=== PATIENT | male | born 1990 | race Caucasian/White ===

== ENCOUNTER 2022-01-18 08:31 | Emergency (ER) | payer OTHER ==
[~2022-01-18] VITALS: Ht 175.3 cm; Wt 104.0 kg
[2022-01-18 08:56] VITALS: BP 137/86
[2022-01-18] MEDS ORDERED: KETOROLAC 15 MG/ML VIAL. IVP ONE (09:00)
[2022-01-18] MEDS ORDERED: ONDANSETRON PF 4 MG/2 ML VIAL. IVP ONE (09:00)
[2022-01-18] MEDS ORDERED: IV NORMAL SALINE 1,000ML 1,000 ML IV ONE (09:00)
--- NOTE | 2022-01-18 09:19 | PHYS DOC ---
Past History Past Surgical History: No Surgical History Adult General Chief Complaint Chief Complaint: ABDOMINAL PAIN HPI HPI Patient is a 31-year-old male presenting to the emergency department for evaluation of left flank and abdomen pain that started last night and has persisted and is caused him multiple episodes of nonbloody nonbilious emesis. He denies fevers chills diarrhea constipation dysuria or hematuria. He says the pain is quite intense and does radiate towards his testicle. He denies ever having prior kidney stones in the past. He appears uncomfortable but is nontoxic with normal vital signs. Review of Systems Review of Systems Constitutional: Denies fever or chills [] Eyes: Denies change in visual acuity, redness, or eye pain [] HENT: Denies nasal congestion or sore throat [] Respiratory: Denies cough or shortness of breath [] Cardiovascular: No additional information not addressed in HPI [] GI: + abdominal pain, nausea, vomiting. No bloody stools or diarrhea [] : Denies dysuria or hematuria [] Musculoskeletal: + back pain. No joint pain [] Integument: Denies rash or skin lesions [] Neurologic: Denies headache, focal weakness or sensory changes [] All other systems were reviewed and found to be within normal limits, except as documented in this note. Current Medications Current Medications Current Medications Medications (Trade) Dose Ordered Sig/Xin Start Time Stop Time Status Last Admin Dose Admin Fentanyl Citrate (Fentanyl 2ml Vial) 75 mcg 1X ONCE 01/18/22 09:00 01/18/22 09:15 DC Ketorolac Tromethamine (Toradol 15mg Vial) 15 mg 1X ONCE 01/18/22 09:00 01/18/22 09:15 DC Ondansetron HCl (Zofran) 4 mg 1X ONCE 01/18/22 09:00 01/18/22 09:15 DC Sodium Chloride 1,000 ml @ 1,000 mls/hr 1X ONCE 01/18/22 09:00 01/18/22 09:59 Allergies Allergies Allergies Coded Allergies Type Severity Reaction Last Updated Verified Penicillins Allergy Unknown 01/18/22 Yes Physical Exam Physical Exam Constitutional: Well developed, well nourished, no acute distress, non-toxic appearance. [] HENT: Normocephalic, atraumatic, bilateral external ears normal, oropharynx moist, no oral exudates, nose normal. [] Eyes: PERRLA, EOMI, conjunctiva normal, no discharge. [] Neck: Normal range of motion, no tenderness, supple, no stridor. [] Cardiovascular:Heart rate regular rhythm, no murmur [] Lungs & Thorax: Bilateral breath sounds clear to auscultation [] Abdomen: Bowel sounds normal, soft, no tenderness, no masses, no pulsatile masses. [] Skin: Warm, dry, no erythema, no rash. [] Back: No tenderness, no CVA tenderness. [] Extremities: No tenderness, no cyanosis, no clubbing, ROM intact, no edema. [] Neurologic: Alert and oriented X 3, normal motor function, normal sensory function, no focal deficits noted. [] Current Patient Data Vital Signs Vital Signs Date Time Temp Pulse Resp B/P (MAP) Pulse Ox O2 Delivery O2 Flow Rate FiO2 01/18/22 08:56 97.0 86 18 137/86 (103) 97 Room Air EKG EKG [] Radiology/Procedures Radiology/Procedures IMPRESSION: 1. Mild left hydronephrosis due to a 4 mm calculus in the proximal left ureter. 2. Bilateral nephrolithiasis. 3. Mild hepatomegaly. Hepatic steatosis. Heart Score C/O Chest Pain: No Risk Factors: Risk Factors: DM, Current or recent (<one month) smoker, HTN, HLP, family history of CAD, obesity. Risk Scores: Risk Factors: DM, Current or recent (<one month) smoker, HTN, HLP, family history of CAD, obesity. Course & Med Decision Making Course & Med Decision Making I will check labs and imaging, treat symptoms and reassess. Patient does have findings of a left ureter calculus that is proximal 4 mm in size that is causing mild left hydronephrosis. I discussed the diagnosis with the patient and he said that his pain and nausea has completely resolved in the emergency department. I told him that the stone may not pass but we will give him a trial of passage at home but recommended follow-up with a urologist. I told him we do not have a urologist on staff here told him he could either follow-up [facility] or Josh. I told him if he has worsening pain fevers vomiting or other concerns that he should come back to emergency department where he would likely require transfer to a facility with urology. Patient will be discharged in stable condition with supportive medications told to follow-up as above and come back as directed. Patient aware and agreeable with plan and verbalized understanding of the above instructions. Dragon Disclaimer [place] Disclaimer This electronic medical record was generated, in whole or in part, using a voice recognition dictation system. Departure Departure: Impression: Primary Impression: Hydronephrosis, left Additional Impressions: Left ureteral calculus Hematuria Disposition: HOME / SELF CARE / HOMELESS Condition: STABLE Referrals: PCP,UNKNOWN (PCP) YONI DUFF MD Patient Instructions: Kidney Stones, [id number] Additional Instructions: Drink plenty of fluids and take 600 mg of ibuprofen every 6 hours for pain and the Percocet for breakthrough pain. Follow-up with urology as an outpatient. Scripts Tamsulosin Hcl (FLOMAX) 0.4 Mg Cap.er.24h 0.4 MG PO QHS, #14 CAP.SR Prov: SHREE DAWSON DO 01/18/22 Oxycodone Hcl/Acetaminophen (PERCOCET 5-325 MG TABLET ) 1 Each Tablet 1 TAB PO PRN Q6HRS PRN for PAIN, #16 TAB Prov: SHREE DAWSON DO 01/18/22 Ondansetron (ONDANSETRON ODT) 4 Mg Tab.rapdis 1 TAB PO PRN Q6-8HRS, #16 TAB Prov: SHREE DAWSON DO 01/18/22 Problem Qualifiers SHREE DAWSON DO January 18, 2022 09:19
--- NOTE | 2022-01-18 09:46 | RAD ---
Exam: CT abdomen/pelvis without intravenous contrast Indication: Left flank pain and abdominal pain Comparison: None Technique: Helical CT imaging performed of the abdomen and pelvis without the use of intravenous cont rast. Sagittal and coronal reformats were obtained. One or more of the following individualized dose reduction techniques were utilized for this examinat ion: 1. Automated exposure control 2. Adjustment of the mA and/or kV according to patient size 3. Use of iterative reconstruction technique. Findings: Inherently limited evaluation without intravenous contrast. Lower chest: Lung bases are clear. The heart is normal in size. Liver: The liver is mildly enlarged measuring 19.5 cm in length and diffusely decreased in attenuatio n. Gallbladder/Biliary Tree: Normal. Pancreas: Normal. Spleen: Normal. Adrenal Glands: Normal. Kidneys/Ureters/Bladder: Kidneys are normal size. There are tiny bilateral renal calculi 2 mm. There is mild left hydronephrosis due to a 4 mm calculus in the proximal ureter. Distal left ureter and kristy dder are normal. Reproductive Organs: Prostate gland is normal. Stomach, small bowel, and colon: The stomach, small bowel, appendix, and colon are normal. Vasculature: No aortic aneurysm. Lymph Nodes: No lymphadenopathy. Peritoneum and retroperitoneum: No free fluid or free air. Bones: No acute osseous abnormality. Miscellaneous: None IMPRESSION: 1. Mild left hydronephrosis due to a 4 mm calculus in the proximal left ureter. 2. Bilateral nephrolithiasis. 3. Mild hepatomegaly. Hepatic steatosis. Electronically signed by: Bev Fernando MD (01/18/2022 9:44 AM) [id number]
[2022-01-18 10:20] LABS: CALCIUM 9.7 mg/dL (8.5-10.1); CREATININE 1.2 mg/dL (0.7-1.3); GFR 70.2; POTASSIUM 4.5 mmol/L (3.5-5.1)
[2022-01-18 10:29] LABS: ALBUMIN 4.2 g/dL (3.4-5.0); ALBUMIN/GLOBULIN RATIO 1.4 (1.0-1.7); TOTAL BILIRUBIN 0.5 mg/dL (0.2-1.0); TOTAL PROTEIN 7.3 g/dL (6.4-8.2)
[2022-01-18 10:42] LABS: BACTERIA,URINE FEW /HPF (0-FEW); CLARITY,URINE CLEAR; COLOR,URINE YELLOW; GLUCOSE,URINE NEG (NEG); NITRITE,URINE NEG (NEG); SQUAMOUS EPITHELIAL CELL,UR FEW /LPF; UROBILINOGEN,URINE 0.2 mg/dL (0.2 mg/dL); WBC,URINE OCC /HPF (0-4)
[2022-01-18 10:54] LABS: BASO # 0.1 x10^3/uL (0.0-0.2); BASO % 0 % (0-3); EOS % 0 % (0-3); HEMOGLOBIN 14.6 g/dL (13.0-17.5); LYMPH # 1.1 x10^3/uL (1.0-4.8); LYMPH % 6 % (24-48); MEAN CORPUSCULAR HEMOGLOBIN 29 pg (25-35); MEAN CORPUSCULAR HGB CONC 33 g/dL (31-37); MEAN CORPUSCULAR VOLUME 87 fL (79-100); MONO # 0.7 x10^3/uL (0.0-1.1); MONO % 4 % (0-9); NEUT # 15.6 x10^3uL (1.8-7.7); NEUT % 90 % (31-73); PLATELET COUNT 288 x10^3/uL (140-400); RED BLOOD COUNT 5.04 x10^6/uL (4.30-5.70); WHITE BLOOD COUNT 17.4 x10^3/uL (4.0-11.0)
[2022-01-18] MEDS ORDERED: ONDA4TAB12 PO (10:57)
[2022-01-18] MEDS ORDERED: TAMS0.4C97 PO (10:57)
[2022-01-18] MEDS ORDERED: OXYC1TAB15 PO (10:57)
[2022-01-18 12:22] LABS: % LYMPHS 9 % (24-48); % MONOS 3 % (0-10); % SEGS 88 % (35-66); PLT ESTIMATE ADEQUATE (ADEQUATE)
== END 2022-01-18 11:10 | disposition home or self-care (01) ==
LOC: ER 08:31
DX: N13.2 Hydronephrosis with renal and ureteral calculous obstruction (principal); R31.9 Hematuria, unspecified; Z88.0 Allergy status to penicillin
CPT/HCPCS: 36415; 74176; 80053; 81001; 83690; 85007; 85025; 96361; 96374; 96375; 99284; J1885; J2405; J3010; J7030